=== PATIENT | female | born 1975 | race Hispanic/Latino ===

== ENCOUNTER 2017-12-22 15:03 | Emergency (ER) | payer MEDICARE ==
[~2017-12-22 15:03] MED LIST: BECL8.7A6 IH; HYDR200T4 PO; LISI-613 PO; METH25VI17 IJ
[2017-12-22 15:31] LABS: BASOPHILS % (AUTO) 0.6 % (0.0-5.0); EOSINOPHILS % (AUTO) 1.2 % (0.0-8.0); LYMPHOCYTES % (AUTO) 28.6 % (21.0-51.0); MEAN CORPUSCULAR HEMOGLOBIN 29.3 pg (27.0-33.0); MEAN CORPUSCULAR HGB CONC 34.2 g/dL (32.0-36.0); MEAN CORPUSCULAR VOLUME 85.7 fL (79-99); MONOCYTES % (AUTO) 8.4 % (3.0-13.0); NEUTROPHILS % (AUTO) 61.2 % (40.0-77.0); PLATELET COUNT (AUTO) 216 K/uL (130-400); RED BLOOD CELL COUNT(AUTO) 3.96 MIL/uL (4.00-5.50); RED CELL DISTRIBUTION WIDTH 15.5 % (11.0-15.5); WHITE BLOOD COUNT (AUTO) 5.9 K/uL (4.8-10.8)
[2017-12-22 15:46] LABS: INR 0.95 (0.85-1.15); PARTIAL THROMBOPLASTIN TIME 26.1 SEC (26.3-35.5); PROTHROMBIN TIME 9.8 SEC (9.6-11.6)
[2017-12-22 15:47] LABS: CREATININE 1.2 mg/dL (0.5-1.5); POTASSIUM 4.2 mmol/L (3.5-5.1)
[2017-12-22 16:01] LABS: ALBUMIN 3.1 g/dL (3.5-5.0); BILIRUBIN,TOTAL 0.2 mg/dL (0.2-1.0); CREATINE KINASE MB 0.5 ng/mL (0.5-3.6); TOTAL PROTEIN, SERUM 8.9 g/dL (6.0-8.3)
[2017-12-22 16:21] LABS: APPEARANCE,URINE CLOUDY (CLEAR); BILIRUBIN,URINE NEGATIVE (NEGATIVE); COLOR,URINE YELLOW (YELLOW); GLUCOSE, URINE (UA) NEGATIVE (NEGATIVE); HCG,QUAL RESULT NEGATIVE (NEGATIVE); KETONES,URINE NEGATIVE (NEGATIVE); LEUKOCYTE ESTERASE ,URINE NEGATIVE (NEGATIVE); NITRATE,URINE POSITIVE (NEGATIVE); OCCULT BLOOD,URINE SMALL (NEGATIVE); PROTEIN,URINE 100 (NEGATIVE); UROBILINOGEN,URINE 0.2 mg/dL (0.2-1.0)
[2017-12-22 16:28] LABS: AMPHET/METH SCREEN,URINE NEGATIVE (NEGATIVE); BARBITURATE SCREEN, URINE NEGATIVE (NEGATIVE); BENZODIAZEPINES SCREEN,URINE NEGATIVE (NEGATIVE); CANNABINOID SCREEN,URINE NEGATIVE (NEGATIVE); COCAINE SCREEN,URINE NEGATIVE (NEGATIVE); OPIATE SCREEN,URINE NEGATIVE (NEGATIVE); PHENCYCLIDINE SCREEN,URINE NEGATIVE (NEGATIVE)
[2017-12-22 16:42] LABS: BACTERIA,URINE Moderate /HPF (None Seen); SQUAMOUS EPITHELIAL CELL,UR Few /HPF (0-2)
[2017-12-22] MEDS ORDERED: ASPIRIN 325 MG TABLET ONE (16:50)
[2017-12-22] MEDS ORDERED: NEOMYCIN/POLYMYXIN/HC OTIC SUSP 10ML BOTTLE ONE (19:51)
== END 2017-12-22 19:00 | disposition home or self-care (01) ==
LOC: EDH 15:03
DX: R07.1 Chest pain on breathing (principal); M32.9 Systemic lupus erythematosus, unspecified; I10 Essential (primary) hypertension; M06.9 Rheumatoid arthritis, unspecified; Z88.2 Allergy status to sulfonamides; Z98.51 Tubal ligation status; Z98.890 Other specified postprocedural states
CPT/HCPCS: 36415; 71045; 73030; 80053; 80305; 81001; 81025; 82553; 84484; 85025; 85610; 85651; 85730; 86140; 87088; 87186; 93005

== ENCOUNTER 2018-08-31 20:43 | Emergency (ER) | payer MEDICARE ==
[2018-08-31] MEDS ORDERED: SODIUM CHLORIDE 0.9% 1000ML 1,000 ML IV ONE (21:30)
[2018-08-31] MEDS ORDERED: ONDANSETRON HCL 4 MG/2 ML VIAL ONE (21:30)
[2018-08-31 21:34] LABS: BASOPHILS % (AUTO) 0.4 % (0.0-5.0); EOSINOPHILS % (AUTO) 0.3 % (0.0-8.0); HEMATOCRIT 39.5 % (36-48); LYMPHOCYTES % (AUTO) 20.4 % (21.0-51.0); MEAN CORPUSCULAR HEMOGLOBIN 30.9 pg (27.0-33.0); MEAN CORPUSCULAR HGB CONC 32.9 g/dL (32.0-36.0); MEAN CORPUSCULAR VOLUME 94.1 fL (79-99); MONOCYTES % (AUTO) 8.1 % (3.0-13.0); NEUTROPHILS % (AUTO) 70.8 % (40.0-77.0); NUCLEATED RED BLOOD CELLS 0.3 % (0.0-0.19); PLATELET COUNT (AUTO) 169 K/uL (130-400); RED CELL DISTRIBUTION WIDTH 15.4 % (11.0-15.5); WHITE BLOOD COUNT (AUTO) 6.4 K/uL (4.8-10.8)
[2018-08-31 21:44] LABS: APPEARANCE,URINE Clear (CLEAR); BILIRUBIN,URINE Negative (NEGATIVE); COLOR,URINE Yellow (YELLOW); GLUCOSE, URINE (UA) Negative (NEGATIVE); KETONES,URINE Negative (NEGATIVE); LEUKOCYTE ESTERASE ,URINE Negative (NEGATIVE); NITRATE,URINE Negative (NEGATIVE); OCCULT BLOOD,URINE Negative (NEGATIVE); PH,URINE 5.5 (5.0-8.0); PROTEIN,URINE POS 1+ (NEGATIVE); UROBILINOGEN,URINE 0.2 mg/dL (0.2-1.0)
[2018-08-31 21:45] LABS: HCG,QUAL RESULT NEGATIVE (NEGATIVE)
[2018-08-31 21:52] LABS: BACTERIA,URINE None Seen /HPF (None Seen); MUCUS,URINE Moderate LPF (None Seen); RBC,URINE None Seen /HPF (0-1); WBC,URINE None Seen /HPF (0-1)
[2018-08-31 21:53] LABS: CREATININE 1.2 mg/dL (0.5-1.5); POTASSIUM 3.7 mmol/L (3.5-5.1)
[2018-08-31 21:54] LABS: ALBUMIN 3.3 g/dL (3.5-5.0); BILIRUBIN,TOTAL 0.3 mg/dL (0.2-1.0); TOTAL PROTEIN, SERUM 8.4 g/dL (6.0-8.3)
[2018-08-31] MEDS ORDERED: KETOROLAC TROMETHAMINE 30MG/ML ONE (21:59)
== END 2018-08-31 23:11 | disposition home or self-care (01) ==
LOC: EDH 20:43
DX: A08.4 Viral intestinal infection, unspecified (principal); I10 Essential (primary) hypertension; M06.9 Rheumatoid arthritis, unspecified; M32.9 Systemic lupus erythematosus, unspecified; Z88.2 Allergy status to sulfonamides; Z90.49 Acquired absence of other specified parts of digestive tract; Z98.890 Other specified postprocedural states
CPT/HCPCS: 36415; 80053; 81001; 81025; 85025; 87804 ×2; 96361; 96374; 96375; 99283; J1885; J2405; J7030

== ENCOUNTER 2018-10-15 20:13 | Emergency (ER) | payer MEDICARE ==
[2018-10-15] MEDS ORDERED: ACETAMINOPHEN 325 MG TAB ONE (20:57)
== END 2018-10-15 21:02 | disposition home or self-care (01) ==
LOC: EDH 20:13
DX: M79.605 Pain in left leg (principal); I10 Essential (primary) hypertension; M06.9 Rheumatoid arthritis, unspecified; L93.0 Discoid lupus erythematosus; Z96.649 Presence of unspecified artificial hip joint; Z88.2 Allergy status to sulfonamides; W01.0XXA Fall on same level from slipping, tripping and stumbling without subsequent striking against object, initial encounter; Y93.89 Activity, other specified; Y92.098 Other place in other non-institutional residence as the place of occurrence of the external cause; Y99.8 Other external cause status
CPT/HCPCS: 73562; 73590

== ENCOUNTER 2018-11-14 00:37 | Emergency (ER) | payer MEDICARE ==
[2018-11-14] MEDS ORDERED: KETOROLAC TROMETHAMINE 30MG/ML ONE (01:23)
== END 2018-11-14 02:38 | disposition home or self-care (01) ==
LOC: EDH 00:37
DX: S99.812A Other specified injuries of left ankle, initial encounter (principal); M06.9 Rheumatoid arthritis, unspecified; G89.29 Other chronic pain; M79.605 Pain in left leg; M25.472 Effusion, left ankle; I10 Essential (primary) hypertension; L93.0 Discoid lupus erythematosus; Z88.2 Allergy status to sulfonamides; Z96.649 Presence of unspecified artificial hip joint
CPT/HCPCS: 73610; 93971; 96372; 99284; J1885

== ENCOUNTER 2022-08-15 14:25 | Emergency (ER) | payer MEDICARE ==
[~2022-08-15] VITALS: Ht 162.6 cm; Wt 95.3 kg
[~2022-08-15 14:25] MED LIST changes: -LISI-613 PO; +LISI20TA24 PO
[2022-08-15 14:30] VITALS: BP 168/83
[2022-08-15 14:48] LABS: BASOPHILS % (AUTO) 0.9 % (0.0-5.0); EOSINOPHILS % (AUTO) 0.9 % (0.0-8.0); HEMATOCRIT 38.2 % (36-48); MEAN CORPUSCULAR HEMOGLOBIN 30.9 pg (27.0-33.0); MEAN CORPUSCULAR HGB CONC 33.2 g/dL (32.0-36.0); MEAN CORPUSCULAR VOLUME 92.9 fL (79-99); MONOCYTES % (AUTO) 7.5 % (3.0-13.0); NEUTROPHILS % (AUTO) 60.5 % (40.0-77.0); PLATELET COUNT (AUTO) 169 K/uL (130-400); RED BLOOD CELL COUNT(AUTO) 4.11 MIL/uL (4.00-5.50); RED CELL DISTRIBUTION WIDTH 13.4 % (11.0-15.5); WHITE BLOOD COUNT (AUTO) 5.5 K/uL (4.8-10.8)
[2022-08-15 14:55] LABS: APPEARANCE,URINE CLOUDY (CLEAR); BILIRUBIN,URINE NEGATIVE (NEGATIVE); COLOR,URINE YELLOW (YELLOW); GLUCOSE, URINE (UA) NEGATIVE (NEGATIVE); KETONES,URINE NEGATIVE (NEGATIVE); LEUKOCYTE ESTERASE ,URINE 250 Leu/uL (NEGATIVE); NITRATE,URINE 2+ (NEGATIVE); PH,URINE 5.5 (5.0-8.0); PROTEIN,URINE 30 mg/dL (NEGATIVE); UROBILINOGEN,URINE 0.2 mg/dL (0.2-1.0)
[2022-08-15 15:00] LABS: CREATININE 1.1 mg/dL (0.5-1.5)
[2022-08-15] MEDS ORDERED: ASPIRIN 325MG TAB PO ONE (15:00)
[2022-08-15 15:04] LABS: BACTERIA,URINE MANY /HPF (None Seen); MUCUS,URINE RARE LPF (None Seen); OTHER CASTS, URINE 1 /LPF (None Seen); SQUAMOUS EPITHELIAL CELL,UR MOD /HPF (0-2); WBC,URINE 26-50 /HPF (0-1)
[2022-08-15 15:05] LABS: ALBUMIN 3.7 g/dL (3.5-5.0); TOTAL PROTEIN, SERUM 8.8 g/dL (6.0-8.3)
[2022-08-15 15:08] LABS: B-TYPE NATRIURETIC PEPTIDE 27 pg/mL (0-100)
[2022-08-15] MEDS ORDERED: CEFTRIAXONE 1G VIAL IVP ONE (16:00)
[2022-08-15] MEDS ORDERED: CEPH500B PO (16:25)
== END 2022-08-15 16:44 | disposition home or self-care (01) ==
LOC: EDH 14:25
DX: R07.89 Other chest pain (principal); R03.0 Elevated blood-pressure reading, without diagnosis of hypertension; N39.0 Urinary tract infection, site not specified; M32.9 Systemic lupus erythematosus, unspecified; M06.9 Rheumatoid arthritis, unspecified; Z98.890 Other specified postprocedural states; Z79.899 Other long term (current) drug therapy; Z88.2 Allergy status to sulfonamides
CPT/HCPCS: 99285; 96374; 71045; 84484 ×2; 80053; 83880; 85025; 87077; 87088; 87186; 81001; 36415; 93005; J0696

== ENCOUNTER 2023-01-21 21:36 | Emergency (ER) | payer MEDICARE ==
[~2023-01-21] VITALS: Ht 162.6 cm; Wt 95.3 kg
[~2023-01-21 21:36] MED LIST changes: +CEPH500B PO
[2023-01-21 23:03] VITALS: BP 151/54
[2023-01-22] MEDS ORDERED: ALBUTEROL 0.083% 2.5 MG/3 ML INH IH ONE (01:00)
[2023-01-22] MEDS ORDERED: METH4TAB3 PO (01:42)
[2023-01-22] MEDS ORDERED: IBUP-2070 PO (01:42)
[2023-01-22] MEDS ORDERED: IBUPROFEN 600 MG TABLET PO ONE (02:00)
[2023-01-22] MEDS ORDERED: DEXAMETHASONE SOD PHOSPHATE 4 MG/ML 1ML VIAL IM ONE (02:00)
== END 2023-01-22 02:25 | disposition home or self-care (01) ==
LOC: EDH 21:36
DX: R09.1 Pleurisy (principal); R07.89 Other chest pain; I10 Essential (primary) hypertension; J45.909 Unspecified asthma, uncomplicated; M06.9 Rheumatoid arthritis, unspecified; M32.9 Systemic lupus erythematosus, unspecified; Z90.49 Acquired absence of other specified parts of digestive tract; Z98.890 Other specified postprocedural states; Z79.899 Other long term (current) drug therapy; Z88.2 Allergy status to sulfonamides
CPT/HCPCS: 99283; 71045; 96372; 94640; J1100

== ENCOUNTER 2025-05-24 10:39 | Emergency (ER) | payer OTHER, MEDICAID ==
[~2025-05-24] VITALS: Ht 162.6 cm; Wt 96.6 kg
[~2025-05-24 10:39] MED LIST changes: -HYDR200T4 PO; +HYDR200T75 PO; +IBUP-1492 PO; +METH4TAB3 PO
[2025-05-24] MEDS: HYDROcodone/APAP 5/325 1 TAB TABLET PO STA (11:23)
[2025-05-24] MEDS: TRIAMCINOLONE ACETONIDE 40 MG/ML 1ML VIAL IM STA (11:33)
--- NOTE | 2025-05-24 12:45 | HMCIMG ---
EXAM: CR right Femur, 4 View. CLINICAL HISTORY: pain COMPARISON: None provided. FINDINGS: No acute fracture or aggressive appearing osseous lesion. 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 The soft tissues are unremarkable. IMPRESSION: 1. No acute osseous injury. 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 /[place]
--- NOTE | 2025-05-24 12:47 | HMCIMG ---
EXAM: CR left Hip, 5 View. CLINICAL HISTORY: hip pain COMPARISON: None provided. FINDINGS: BONES: No acute fracture or aggressive appearing osseous lesion. JOINTS: No dislocation. Left total hip arthroplasty is in near anatomic alignment with no periprosthetic fracture appreciated. SOFT TISSUES: The soft tissues are unremarkable. IMPRESSION: 1. Left total hip arthroplasty is in near anatomic alignment without an acute osseous injury. /[place]
[2025-05-24 13:06] VITALS: BP 113/68; PULSE 70; RESP 17; TEMP 97.6; O2SAT 98
--- NOTE | 2025-05-24 13:08 | ERN ---
ED Note History of Present Illness Stated Complaint: LEFT HIP PAIN Chief Complaint: Hip Pain/Injury Time Seen by MD: 10:43 Time Seen by Midlevel: 10:45 Dictation: 50Year old female complaining of left femur pain and left hip pain patient states she has had an prosthetic in his concerns for a displacement or misalignment. Denies any trauma Allergies: Coded Allergies: Sulfa (Sulfonamide Antibiotics) (Unverified Allergy, Unknown, RASH, 08/09/17) Home Meds Active Scripts Methylprednisolone (Medrol) 4 Mg Tab.ds.pk, 4 MG PO AD for 6 Days, #1 KIT Prov:BEN DANIEL MD 01/22/23 Ibuprofen (Ibuprofen) 600 Mg Tablet, 600 MG PO Q6H PRN for PAIN, #30 TAB Prov:BEN DANIEL MD 01/22/23 Cephalexin Monohydrate (Keflex) 500 Mg Cap, 500 MG PO TID for 7 Days, #21 CAP Prov:KELLIE PETER 08/15/22 Reported Medications Beclomethasone Dipropionate (Qvar) 8.7 Gm Aer.w.adap, 2 PUFF IH Q6H PRN for SHORTNESS OF BREATH 08/11/17 Methotrexate Sodium/Pf (Methotrexate 25 mg/ml Vial) 25 Mg/1 Ml Vial, 25 MG IJ QWEEK, VIAL 08/09/17 Lisinopril (Lisinopril) 20 Mg Tablet, 20 MG PO AM, TAB 08/09/17 Hydroxychloroquine Sulfate (Hydroxychloroquine Sulfate) 200 Mg Tablet, 200 MG PO BID, TAB 08/09/17 Past Medical History Past Medical History: Hypertension Additional Past Medical Hx: LUPUS , RA Surgical History: Other Surgical History Other: SAIGE HIP AND SAIGE KNEES Family History: Negative Social History: Negative, Lives with family History: Not Applicable Review of System Dictation Constitutional: Negative for fever,chills, and weight loss Eyes: Negative for injury, pain,redness, and discharge ENT: Negative for injury,pain or swelling Cardiovascular: Negative for chest pain, palpitations, and edema Respiratory: Negative for shortness of breath, cough, and wheezing, Abdomen/GI: Negative for abdominal pain, nausea, vomiting, diarrhea, and constipation Back: Negative for injury and pain : Negative for injury, bleeding and discharge MS/Extremity: Left hip pain and left femur pain Skin: Negative for rash, and discoloration Neuro: Negative for headache, weakness, numbness, tingling, and seizure Psych: Negative for suicide ideation, homicidal ideation, and hallucinations Review of Systems: was completed Initial Vital Sign VS Vital Signs Date Time Temp Pulse Resp B/P (MAP) Pulse Ox O2 Delivery O2 Flow Rate FiO2 05/24/25 10:43 97.5 68 18 116/67 96 Room Air 0 Physical Exam Dictation General: awake, alert, NAD Head/Face: Normocephalic, atraumatic Eyes: PERRL, EOMI, vision at baseline ENT: oral cavity clear, TMs clear, no signs of infection Neck: Trachea midline, supple, no nuchal rigidity Cardiovascular: RRR, normal S1/S2, No MRGs, no JVD Respiratory: CTAB, no respiratory distress, No rales or wheezes Abdomen: Soft, non-tender, non-distended, normal bowel sounds, no guarding or rebound. Skin: Warm, dry, normal turgor, no rash MS/Extremity: Pulses equal, no cyanosis, neurovascular intact, FROM Neuro: COAx4, GCS 15, strength 5/5, CN 2-12 intact, normal cerebellar exam, normal gait, Psych: Normal behavior, mood, and affect normal Results (Laboratory/Radiology) X-RAY Comment: [address] [address] IMAGING REPORT Signed PATIENT: TOBIN CATHERINE MR#: [id number] : 1975 SEX: F AGE: 50 LOCATION: ED ORDER 120 STATUS: REG ER REPORT#: [id number] SERVICE 1202 REASON: pain ORDERING PHYSICIAN: WOODY CHOE NP PROCEDURE: FEM RT 2 - FEMUR 2VW RIGHT EXAM: CR right Femur, 4 View. CLINICAL HISTORY: pain COMPARISON: None provided. FINDINGS: No acute fracture or aggressive appearing osseous lesion. 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 The soft tissues are unremarkable. IMPRESSION: 1. No acute osseous injury. 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 /[place] DICTATED BY: RAMANDEEP VILLATORO Jr., MD DATE: 05/24/251343 ELECTRONICALLY SIGNED BY: RAMANDEEP VILLATORO Jr., MD DATE: 05/24/251343 [place] [address] [place] [address] [id number] IMAGING REPORT Signed PATIENT: TOBIN CATHERINE MR#: [id number] : 1975 SEX: F AGE: 50 LOCATION: EDH ORDER 105 STATUS: REG ER REPORT#: [id number] SERVICE 105 REASON: hip pain ORDERING PHYSICIAN: WOODY CHOE NP PROCEDURE: HIP U 2V L - HIP UNILAT 2-3VW LEFT EXAM: CR left Hip, 5 View. CLINICAL HISTORY: hip pain COMPARISON: None provided. FINDINGS: BONES: No acute fracture or aggressive appearing osseous lesion. JOINTS: No dislocation. Left total hip arthroplasty is in near anatomic alignment with no periprosthetic fracture appreciated. SOFT TISSUES: The soft tissues are unremarkable. IMPRESSION: 1. Left total hip arthroplasty is in near anatomic alignment without an acute osseous injury. /[place] DICTATED BY: RAMANDEEP VILLATORO Jr., MD DATE: 05/24/251345 ELECTRONICALLY SIGNED BY: RAMANDEEP VILLATORO Jr., MD DATE: 05/24/251345 ED Course ED Course Orders Procedure Category Date Status Time Triamcinolone Acet PHA 05/24/25 Complete 40mg/Ml 1ml (Kenalog 10:56 Ketorolac PHA 05/24/25 Complete Tromethamine 15mg/Ml 10:56 Hydrocodone/Apap PHA 05/24/25 Complete 5/325 ([place] 5/325mg) 10:56 Femur 2vw Right RAD 05/24/25 Resulted 12:02 Hip Unilat 2-3vw Left RAD 05/24/25 Resulted 10:56 Current Medications Medications (Trade) Dose Ordered Sig/Jose Alejandro Route PRN Reason Start Time Stop Time Status Last Admin Dose Admin Acetaminophen/ Hydrocodone Bitart (NORco 5/325MG) 1 tab ONCE STAT PO 05/24/25 10:56 05/24/25 11:01 DC 05/24/25 11:23 Ketorolac Tromethamine (toRADol) 15 mg ONCE STAT IM 05/24/25 10:56 05/24/25 11:01 DC 05/24/25 11:23 Triamcinolone Acetonide (Kenalog 40) 40 mg ONCE STAT IM 05/24/25 10:56 05/24/25 11:01 DC 05/24/25 11:33 Vital Signs Date Time Temp Pulse Resp B/P (MAP) Pulse Ox O2 Delivery O2 Flow Rate FiO2 05/24/25 10:43 97.5 68 18 116/67 96 Room Air 0 Medical Decision Making MDM MDM: 50Year old female complaining of left femur pain and left hip pain patient states she has had an prosthetic in his concerns for a displacement or misalignment. Denies any trauma. Denies any fevers, nausea and vomiting, redness swollen to the area. X-ray shows no acute finding. Discussed with the patient's findings educated she needs to follow up with the specialist regarding her pain in further evaluation. Patient verbalized understanding, answered all questions started Differential diagnosis: Hip pain, arthritis, Rationale: Tests considered and ordered secondary to shared decision making include: Previous outside records reviewed: Old ER visits. Risk of complication and/or morbidity or mortality of patient management: None Medications-Per medication reconciliation Need for hospitalization: Patient does not meet criteria for hospitalization. Need for emergency major/minor surgery: No There are no social concerns with this patient. Prescription drug management Prescriptions will include symptomatic care Patient's prior external medical records from other ER visits were reviewed by me as indicated. Prior testing and results from previous visits were reviewed. Prior tests were taken into account with medical decision making and resource utilization, independent historian/historians were used to obtain complete medical history. I independently interpreted the test that were performed, results were reviewed by me and considered findings on radiology if ordered. Medical management and examination interpretation discussions were had by me with other qualified healthcare professionals as indicated for the patient's care. DX & DISP Disposition: Discharge Departure Impression: Primary Impression: Hip pain, left Condition: Stable Additional Instructions: Follow up with the specialist as scheduled. Take Tylenol or Motrin [id number] for pain control. Return to the hospital if any worsening symptoms. Referrals: GIANLUCA FELIX MD (PCP) Time of Disposition: 13:08 I have reviewed the case, and I agree with, Diagnosis and Plan WOODY CHOE NP May 24, 2025 13:08
== END 2025-05-24 13:18 | disposition home or self-care (01) ==
LOC: EDH 10:39
DX: M25.552 Pain in left hip (principal); I10 Essential (primary) hypertension; Z79.51 Long term (current) use of inhaled steroids; Z88.2 Allergy status to sulfonamides; Z96.643 Presence of artificial hip joint, bilateral
CPT/HCPCS: 99284; 73502; 73552; 96372 ×2; J1885; J3301